=== PATIENT | female | born 1990 | race Caucasian/White ===

== ENCOUNTER 2017-07-31 21:22 | Emergency (ER) | payer OTHER ==
[~2017-07-31] VITALS: Ht 165.1 cm; Wt 61.2 kg
[2017-07-31] MEDS ORDERED: BUPR150ER PO (23:05)
== END 2017-08-01 00:03 | disposition home or self-care (01) ==
LOC: ER 21:22
DX: J02.9 Acute pharyngitis, unspecified (principal); Z88.0 Allergy status to penicillin
CPT/HCPCS: 87081; 87147; 87430; 99283; J1100

== ENCOUNTER → 2017-09-12 | Outpatient (CLI) | payer OTHER ==
[~2017-09-12] MED LIST: ACID REDUCER20 MG PO; AMIT10 PO; BUPR150ER PO; BUTALB-ACETAMI1 EAC2 PO; Depo-Prove400 MG/1 M IM; NYST237S MT
== END | disposition home or self-care (01) ==
LOC: LAB EV 09:31
DX: J02.9 Acute pharyngitis, unspecified (principal)
CPT/HCPCS: 87070

== ENCOUNTER → 2017-12-11 | Outpatient (CLI) | payer OTHER ==
[~2017-12-11] MED LIST changes: -ACID REDUCER20 MG PO; -AMIT10 PO; -BUTALB-ACETAMI1 EAC2 PO; -Depo-Prove400 MG/1 M IM; -NYST237S MT
== END | disposition home or self-care (01) ==
LOC: LAB EV 11:26 → LAB SHORT 11:26
DX: J02.9 Acute pharyngitis, unspecified (principal)
CPT/HCPCS: 87070

== ENCOUNTER 2017-12-28 18:29 | Emergency (ER) | payer OTHER ==
[~2017-12-28] VITALS: Ht 165.1 cm; Wt 59.0 kg
[2017-12-28] MEDS ORDERED: BUTALB-ACETAMI1 EAC2 PO (18:35)
[2017-12-28] MEDS ORDERED: AMIT10 PO (18:36)
[2017-12-28] MEDS ORDERED: ACID REDUCER20 MG PO (18:36)
[2017-12-28] MEDS ORDERED: Depo-Prove400 MG/1 M IM (18:37)
[2017-12-28] MEDS ORDERED: NYST237S MT (18:59)
== END 2017-12-28 19:42 | disposition home or self-care (01) ==
LOC: ER 18:29
DX: B08.5 Enteroviral vesicular pharyngitis (principal); Z88.1 Allergy status to other antibiotic agents; Z79.899 Other long term (current) drug therapy; F17.200 Nicotine dependence, unspecified, uncomplicated
CPT/HCPCS: 99282